=== PATIENT | female | born 1995 | race Hispanic/Latino ===

== ENCOUNTER 2018-04-19 20:01 | Emergency (ER) | payer OTHER ==
[2018-04-19 20:19] VITALS: BP 135/72; PULSE 56; RESP 13; TEMP 98.3; O2SAT 100; BMI 21.2
--- NOTE | 2018-04-19 21:01 | ED PDOC ---
HPI: Wound Care - HPI Time Seen by Provider: 04/19/18 20:34 Chief Complaint (Nursing): Abnormal Skin Integrity Chief Complaint (Provider): Finger Laceration History Per: Patient Exam Limitations: no limitations Onset/Duration Of Symptoms: Mins (just prior to arrival) Current Symptoms Are (Timing): Still Present Location Of Injury: Left: Hand (4th digit) Additional Complaint(s): 23 year old female with no past medical history presents to the ED for evaluation of a finger laceration she sustained just prior to arrival. Patient states she was cutting vegetables when her knife slipped and she cut her left 4th digit. Patient is right hand dominant. Patient is seeking wound evaluation. Patient states she cleaned the laceration at home with water and the bleeding was controlled at home prior to arrival. Patient denies having any other complaints. Patient's tetanus UTD. Last period was 3x weeks ago. Otherwise: (- ) numbness, (-) other injury (-) loss of sensation. PMD: None Past Medical History Reviewed: Historical Data, Nursing Documentation, Vital Signs Vital Signs: Last Vital Signs Temp 98.3 F 04/19/18 20:18 Pulse 56 L 04/19/18 20:18 Resp 13 04/19/18 20:18 BP 135/72 04/19/18 20:18 Pulse Ox 100 04/19/18 20:18 - Medical History PMH: No Chronic Diseases - Surgical History Surgical History: No Surg Hx - Family History Family History: States: No Known Family Hx - Immunization History Hx Tetanus Toxoid Vaccination: Yes (UTD) - Allergies Allergies/Adverse Reactions: Allergies Allergy/AdvReac Type Severity Reaction Status Date / Time Penicillins Allergy RASH Verified 04/19/18 20:34 Review of Systems ROS Statement: Except As Marked, All Systems Reviewed And Found Negative Musculoskeletal: Positive for: Other (left 4th digit laceration) Physical Exam - Reviewed Nursing Documentation Reviewed: Yes Vital Signs Reviewed: Yes - Physical Exam Comments: GENERAL APPEARANCE: Patient is awake, alert, oriented x 3, resting comfortably, in no acute distress. SKIN: Warm, dry; (-) cyanosis. CHEST AND RESPIRATORY: (-) rales, (-) rhonchi, (-) wheezes; breath sounds equal bilaterally. HEART AND CARDIOVASCULAR: (-) irregularity LEFT HAND: left 4th digit: 0.5 cm U shaped superficial laceration to distal, palmar aspect of left 4th digit. (-) active bleeding, (-) nail involvement, (+) tenderness, (-) swelling, (-) ecchymosis. (+) distal neurovascular intact. (+) sensation and capillary refill intact. Remainder of upper extremity are nontender with full ROM. NEURO AND PSYCH: Mental status as above. Gait Steady. Speech: clear. (-) facial asymmetry - ECG O2 Sat by Pulse Oximetry: 100 (RA) Pulse Ox Interpretation: Normal Procedure: Wound Repair - Time Performed Time Performed: 21:40 - Time Out Time Out: Side verified, Site verified, Patient ID confirmed - Performed by Performed by: Mid-level Provider (Safia BROOKS) - Location Location:: Left Finger:: Ring Shape:: Curvilinear (u shaped) Dimensions Length cm: .5 Depth:: Epidermis - Debris Debris:: None - Irrigated Irrigated with ml of normal saline: 100 - Complexity Complexity:: Simple (one layer) - Wound repair method [place]:: Tissue glue - Complications Complications: None - Patient tolerated procedure Patient Tolerated Procedure:: Well Medical Decision Making Medical Decision Makin:30 Clinical impression: finger laceration Plan: * Wound soak with sterile water and betadine prior to repair * Wound repair with dermabond * Re-evaluation 2139 Wound repair performed by Safia BROOKS. See procedure note. NV intact after dermabond placement. Educated on adhesive wound care. On re-evaluation, patient reports improvement of symptoms. On exam, patient remains AAOx3, in no acute distress. Lungs clear to auscultation, cardiac RRR, repeat neuro exam shows no focal findings. Vitals stable. Advised to use OTC tylenol or motrin for pain. Lab/Diagnostic results d/w the patient in great detail. Diagnosis of finger laceration d/w the patient. Based on history, exam and diagnostic results, plan will be for outpatient follow up. Patient instructed to follow-up with pmd / referral provided / the clinic in 1- 2 days without fail. Return to the emergency room at any time for any new or worsening symptoms. Patient states she fully agrees with and understands discharge instructions. States that she agrees with the plan and disposition. Verbalized and repeated discharge instructions and plan. I have given the patient opportunity to ask any additional questions. Scribe Attestation: Documented by Alexa Arechiga, acting as a scribe for Alexa Johnson Provider Scribe Attestation: All medical record entries made by the Scribe were at my direction and personally dictated by me. I have reviewed the chart and agree that the record accurately reflects my personal performance of the history, physical exam, medical decision making, and the department course for this patient. I have also personally directed, reviewed, and agree with the discharge instructions and disposition. Disposition - Clinical Impression Clinical Impression: Finger laceration - Patient ED Disposition Is Patient to be Admitted: No Counseled Patient/Family Regarding: Studies Performed, Diagnosis, Need For Followup - Disposition Referrals: [facility] [Outside] Disposition: Routine/Home Disposition Time: 21:45 Condition: STABLE Additional Instructions: The emergency medical care you received today was directed at your acute symptoms. If you were prescribed any medication, please fill it and take as directed. It may take several days for your symptoms to resolve. Return to the Emergency Department if your symptoms worsen, do not improve, or if you have any other problems. Please contact your doctor in 2 days for re-evaluation and follow up / or call one of the physicians/clinics you have been referred to that are listed on the Patient Visit Information form that is included in your discharge packet. Bring any paperwork you were given at discharge with you along with any medications you are taking to your follow up visit. Our treatment cannot replace ongoing medical care by a primary care provider (PCP) outside of the emergency department. Instructions: Laceration Repair With Glue (DC), Common Finger Injuries (DC) Forms: [employer] (Estonian) Print Language: SINHALA - POA Present On Arrival: None
== END 2018-04-19 22:07 | disposition home or self-care (01) ==
LOC: H.ER 20:01
DX: S61.215A Laceration without foreign body of left ring finger without damage to nail, initial encounter (principal); W26.0XXA Contact with knife, initial encounter; Y93.G1 Activity, food preparation and clean up; Z88.0 Allergy status to penicillin